=== PATIENT | female | born 2000 | race Caucasian/White ===

== ENCOUNTER 2022-02-06 | Emergency (ER) | payer OTHER, MEDICAID, SELFPAY ==
[2022-02-06 01:03] VITALS: BP 133/74; PULSE 91; RESP 16; TEMP 36.7; O2SAT 98; BMI 46.7
[2022-02-06 04:15] VITALS: BP 121/76; PULSE 79; RESP 12; TEMP 36.9; O2SAT 100
--- NOTE | 2022-02-06 04:15 | ED_ITS ---
HPI - URI/Sore Throat General Chief Complaint: Upper Respiratory Symptoms Stated Complaint: sore throat Time Seen by Provider: 02/06/22 00:21 Source: patient Mode of arrival: ambulatory Limitations: no limitations History of Present Illness HPI Narrative: Patient complaining of sore throat since yesterday no fever no chills no cough patient had oral sex 1 week ago worried about possible infection from there although other partner did not have any infection Related Data Allergies Allergy/AdvReac Type Severity Reaction Status Date / Time No Known Allergies Allergy Unverified 08/06/20 19:42 [No Known Allergies*] Review of Systems Review of Systems: Yes all other systems are reviewed and are negative [facility] Social History Social History Advance Directives: No Advance Directives Information Provided: No Patient : No Physical Exam Vital Signs: Vital Signs: Last Vital Signs Temp 98.4 F 02/06/22 04:15 Pulse 80 02/06/22 05:12 Resp 16 02/06/22 05:12 BP 135/86 02/06/22 05:12 Pulse Ox 99 02/06/22 05:12 BMI result Body Mass Index 46.7 Appearance: Alert. Oriented X3. No acute distress. ENT: Enlarged tonsils no exudate slight erythema Oral Mucosa moist Neck: Normal inspection. Neck supple. CVS: Normal heart rate and rhythm. Pulses normal. Respiratory: No respiratory distress. Equal air entry bilateral, Abdomen: Soft and nontender. Skin: Skin warm and dry. Normal skin color. Normal skin turgor. Neuro: Oriented X 3. MDM - URI/Sore Throat Lab Data Attestation: I reviewed the patient's lab results. Labs: Lab Results 02/06/22 02/06/22 Range/Units 04:23 04:23 COVID-19 ([facility]) Negative (Negative) COVID-19 Clin Com See Note S. pyogenes GrpA NTAA Negative (Negative) Discharge Plan Discharge Clinical Impression: Pharyngitis Patient Disposition: Home, Self-Care Instructions: Pharyngitis (ED) Additional Instructions: Likely have a viral pharyngitis your strep and COVID is negative Follow with PCP if not better Interventions: ED Discharge Assessment Last Done: 02/06/22 05:13 Discharge Date/Time: 02/06/22 05:14
[2022-02-06 04:35] LABS: IDNOW Serial# 08D9AD1C; Strep A Nucleic Acid Negative (Negative)
[2022-02-06 04:41] LABS: COVID-19 Test Negative (Negative)
[2022-02-06 05:12] VITALS: BP 135/86; PULSE 80; RESP 16; O2SAT 99
== END 2022-02-06 05:14 | disposition home or self-care (01) ==
PROVIDERS: Emergency Medicine; Emergency Provider Internal Medicine; PCP Dermatology
DX: J02.9 Acute pharyngitis, unspecified (principal); Z20.822 Contact with and (suspected) exposure to COVID-19
CPT/HCPCS: 87635; 87651; 99283

== ENCOUNTER 2022-07-08 20:56 | Emergency (ER) | payer OTHER, MEDICAID, SELFPAY ==
[2022-07-08 21:00] VITALS: BP 111/74; PULSE 94; TEMP 36.6; O2SAT 100; BMI 46.2
[2022-07-08 21:07] VITALS: BP 135/73; PULSE 78; RESP 18; TEMP 36.6; O2SAT 98; BMI 46.2
[2022-07-08 21:50] LABS: Appearance Urine Clear; Color Urine Yellow; Glucose Urine UA Negative (Negative); Leukocyte Esterase Urine Negative (Negative); Nitrite Urine Negative (Negative); PH 6.5 (5.0-8.0); Specific Gravity - Urine 1.015 (1.005-1.025); Urine Blood Negative (Negative); Urine Ketones Negative (Negative); Urine Protein Negative (Neg-Trace)
[2022-07-08 21:55] LABS: Strep A Nucleic Acid Positive (Negative)
[2022-07-09 00:41] VITALS: BP 143/86; PULSE 70; RESP 16; TEMP 36.9; O2SAT 98
--- NOTE | 2022-07-09 01:10 | PC.NURSE ---
pt a&ox3, vss, pt reports 5/10 throat pain, sores on throat for a few months with no resolution. pt pending ED provider.
--- NOTE | 2022-07-09 01:20 | ED.URI ---
HPI - URI/Sore Throat General Chief Complaint: Dental/Oral Stated Complaint: Sores on Tongue Time Seen by Provider: 07/09/22 01:18 Source: patient Mode of arrival: ambulatory Limitations: no limitations History of Present Illness HPI Narrative: Complaining of sore throat for about a month getting worse also noticed small bumps on the tongue patient was seen here in 02/08 for sore throat at that time strep was negative patient is sexually active but about STDs no vaginal discharge as such denied any discharge on the the partner Related Data Previous Rx's Medication Instructions Recorded amoxicillin 875 mg-potassium 1 tab PO BID #20 tabs 07/09/22 clavulanate 125 mg tablet Allergies Allergy/AdvReac Type Severity Reaction Status Date / Time No Known Allergies Allergy Unverified 08/06/20 19:42 [No Known Allergies*] Review of Systems Review of Systems: Yes all other systems are reviewed and are negative [facility] Social History Social History Advance Directives: No Physical Exam Vital Signs: Vital Signs: Last Vital Signs Temp 98.5 F 07/09/22 00:41 Pulse 70 07/09/22 00:41 Resp 16 07/09/22 00:41 BP 143/86 H 07/09/22 00:41 Pulse Ox 98 07/09/22 00:41 O2 Del Method 07/09/22 00:41 BMI result Body Mass Index 46.2 Appearance: Alert. Oriented X3. No acute distress. ENT: Erythema posterior pharynx no exudates Oral Mucosa moist small bumps on the tongue non necrotic Neck: Normal inspection. Neck supple. CVS: Normal heart rate and rhythm. Pulses normal. Respiratory: No respiratory distress. Skin: Skin warm and dry. Normal skin color. MDM - URI/Sore Throat Lab Data Attestation: I reviewed the patient's lab results. Labs: Lab Results 07/08/22 07/08/22 07/08/22 Range/Units 21:29 21:44 21:44 Urine Color Yellow Urine Appearance Clear Urine pH 6.5 (5.0-8.0) Ur Specific [place] 1.015 (1.005-1.025) Urine Protein Negative (Neg-Trace) mg/dL Urine Glucose (UA) Negative (Negative) mg/dL Urine Ketones Negative (Negative) mg/dL Urine Blood Negative (Negative) Urine Nitrite Negative (Negative) Ur Leukocyte Esterase Negative (Negative) Chlam trachomat DNA PCR NOT DETECTED (Not Detect.) N.gonorrhoeae DNA (PCR) NOT DETECTED (Not Detect.) S. pyogenes GrpA NATA Positive A (Negative) Discharge Plan Discharge Clinical Impression: Acute streptococcal pharyngitis Patient Disposition: Home, Self-Care Instructions: Strep Throat (ED) Additional Instructions: Take antibiotic as prescribed Follow-up with PCP as needed The report for sexual transmitted disease will come by tomorrow will call if it is positive Prescriptions: New amoxicillin-pot clavulanate 875-125 mg tablet 1 tab PO BID Qty: 20 0RF Interventions: ED Discharge Assessment Last Done: 07/09/22 02:01 Discharge Date/Time: 07/09/22 02:03
[2022-07-09] MEDS: Amoxicillin/Potassium Clav 875 MG TABLET PO (01:54)
--- NOTE | 2022-07-09 02:00 | PC.NURSE ---
medicated per provider order.
[2022-07-09 02:58] LABS: CT PCR NOT DETECTED (Not Detect.); NG PCR NOT DETECTED (Not Detect.)
[2022-07-11 22:32] LABS: C. Trachomatis RNA TMA, Throat NOT DETECTED (NOT DETECTED); N. gonorrhoeae RNA TMA, Throat NOT DETECTED (NOT DETECTED)
== END 2022-07-09 02:03 | disposition home or self-care (01) ==
PROVIDERS: Emergency Provider Internal Medicine; PCP Internal Medicine
DX: J02.0 Streptococcal pharyngitis (principal)
CPT/HCPCS: 36415; 81003; 87491; 87591; 87651; 99283

== ENCOUNTER 2022-11-15 08:22 | Emergency (ER) | payer OTHER, MEDICAID, SELFPAY ==
--- NOTE | 2022-11-15 08:23 | ECG_ITS ---
Test Reason : CP Blood Pressure : / mmHG Vent. Rate : 094 BPM Atrial Rate : 094 BPM P-R Int : 134 ms QRS Dur : 068 ms QT Int : 332 ms P-R-T Axes : 036 069 022 degrees QTc Int : 415 ms Normal sinus rhythm Normal ECG When compared with ECG of 03-JUN-2019 15:30, No significant change was found Referred By: Generic ED Physician Electronically Signed By:JAKE COLORADO MD
[2022-11-15 09:12] VITALS: BP 153/88; PULSE 96; RESP 18; TEMP 36.4; O2SAT 97; BMI 45.1
[2022-11-15 09:29] LABS: MANUAL DIFF FLAG NO
[2022-11-15 09:34] LABS: Basophils Percent Auto 0.2 % (0-2); Eosinophils Absolute Auto 0.1 X10*3/uL (0.0-0.4); Eosinophils Percent Auto 0.6 % (0-4); Hematocrit 39.8 % (37.0-47.0); Hemoglobin 13.1 g/dl (12.0-16.0); Imm Gran Abs Auto 0.05 X10*3/uL (0.00-0.03); Imm Gran Pct Auto 0.3 % (0.0-0.4); Lymphocytes Absolute Auto 2.3 X10*3/uL (1.2-4.9); Mean Corpuscular HGB Conc 32.9 g/dl (31.0-35.0); Mean Corpuscular Hemoglobin 27.6 pg (27.0-33.0); Mean Platelet Volume 10.1 fL (9.4-12.3); Monocytes Absolute Auto 0.6 X10*3/uL (0.1-1.2); Monocytes Percent Auto 4.1 % (2-11); Neutrophils Absolute Auto 11.4 x10*3/uL (2.0-8.3); Neutrophils Percent Auto 78.8 % (45-73); Platelet Count 297 X10*3/uL (160-400); Red Blood Count 4.74 X10*6/uL (4.20-5.50); Red Cell Distribution Width 13.1 % (11.0-16.0); White Blood Count 14.4 X10*3/uL (4.8-10.8)
[2022-11-15 09:46] LABS: Anion Gap 9 (12-20); Blood Urea Nitrogen 8 mg/dL (9-16); Calcium 9.2 mg/dL (8.4-10.2); Carbon Dioxide 24 mmol/L (22-29); Chloride 109 mmol/L (96-108); Creatinine Clr Calc Pharmacy 191.4; Estimated Glomerular Filt Rate > 60; Glucose Random 120 mg/dL (60-115); Potassium 4.3 mmol/L (3.3-5.1); Sodium 138 mmol/L (135-145)
[2022-11-15 09:55] LABS: Troponin-I High Sensitivity < 3.5 ng/L (<3.5-17.0)
== END 2022-11-15 11:13 | disposition left against medical advice (07) ==
PROVIDERS: Emergency Provider Emergency Medicine
DX: R07.89 Other chest pain (principal); Z79.899 Other long term (current) drug therapy
CPT/HCPCS: 36415; 80048; 84484; 85025; 93005; 99283

== ENCOUNTER 2022-12-18 14:24 | Emergency (ER) | payer OTHER, SELFPAY ==
--- NOTE | 2022-12-18 14:51 | ED_ITS ---
HPI - Female Genitourinary General Chief complaint: Urogenital-Female <Michelle Cabezas CNP - Last Filed: 12/18/22 14:55> Stated complaint: STD test <Michelle Cabezas CNP - Last Filed: 12/18/22 14:55> Time Seen by Provider: 12/18/22 15:14 <Michelle Cabezas CNP - Last Filed: 12/18/22 14:55> Source: patient <Verónica Marino NP - Last Filed: 12/18/22 17:41> Mode of arrival: ambulatory <Verónica Marino NP - Last Filed: 12/18/22 17:41> Limitations: no limitations <Verónica Marino NP - Last Filed: 12/18/22 17:41> History of Present Illness HPI Narrative: 22-year-old female previously healthy here with concern for STD. Patient reports he had unprotected sexual intercourse with a new sexual partner last night in the night before. Since having intercourse she reports some light vaginal bleeding and discomfort. She denies any urinary symptoms, vaginal discharge, abdominal pain, back pain, fevers or vomiting. Patient reports that she has light vaginal bleeding but has not required to use a pad. She is unsure of her last menstrual cycle. She is on oral control <Verónica Marino NP - Last Filed: 12/18/22 17:41> Related Data Home medications: Previous Rx's Medication Instructions Recorded amoxicillin 875 mg-potassium 1 tab PO BID #20 tabs 07/09/22 clavulanate 125 mg tablet doxycycline monohydrate 100 mg 100 mg PO BID #14 tabs 12/18/22 tablet <Michelle Cabezas CNP - Last Filed: 12/18/22 14:55> Allergies/Adverse reactions: Allergies Allergy/AdvReac Type Severity Reaction Status Date / Time No Known Allergies Allergy Unverified 08/06/20 19:42 [No Known Allergies*] <Michelle Cabezas CNP - Last Filed: 12/18/22 14:55> Review of Systems Review of Systems: Yes all other systems are reviewed and are negative <DORIS Guillory Last Filed: 12/18/22 17:41> Constitutional: Constitutional: Reports no additional constitutional complaints, Denies body ache(s), Denies chills, Denies fever(s), Denies headache(s) and Denies weakness <Verónica Marino WRAPPING MACHINE HELPER - Last Filed: 12/18/22 17:41> Eyes: Eyes: Reports no additional eye complaints and Denies change in vision <Verónica Marino WRAPPING MACHINE HELPER - Last Filed: 12/18/22 17:41> ENT: Reports system reviewed and no additional complaints, except as documented, Denies dizziness, Denies headache(s), Denies nasal congestion, Denies nasal discharge and Denies neck pain <Verónica Marino WRAPPING MACHINE HELPER - Last Filed: 12/18/22 17:41> Cardiovascular: Cardiovascular: Reports no additional cardiovascular complaints, Denies chest pain, Denies leg edema and Denies dyspnea <Verónica Marino WRAPPING MACHINE HELPER - Last Filed: 12/18/22 17:41> Respiratory: Respiratory: Reports no additional respiratory complaints, Denies cough and Denies dyspnea <Verónica Marino WRAPPING MACHINE HELPER - Last Filed: 12/18/22 17:41> Gastrointestinal: Gastrointestinal: Reports no additional gastrointestinal complaints, Denies abdominal pain, Denies diarrhea, Denies nausea and Denies vomiting <Verónica Marino WRAPPING MACHINE HELPER - Last Filed: 12/18/22 17:41> Genitourinary: Genitourinary: Reports no additional female genitourinary complaints, Reports abnormal vaginal bleeding, Denies hematuria, Denies difficulty voiding, Denies dysuria, Denies pelvic pain, Denies urinary incontinence, Denies urinary hesitancy, Denies urinary urgency, Denies vaginal discharge, Denies vaginal dryness, Denies vaginal odor and Denies vaginal pruritus <Verónica Marino WRAPPING MACHINE HELPER - Last Filed: 12/18/22 17:41> Musculoskeletal: Musculoskeletal: Reports no additional musculoskeletal complaints, Denies back pain, Denies arthralgias, Denies joint swelling, Denies neck pain, Denies numbness and Denies tingling <Verónica Marino WRAPPING MACHINE HELPER - Last Filed: 12/18/22 17:41> Integumentary/Breasts: Skin/Breast: Reports system reviewed and no additional complaints, except as docu and Denies rash <Verónica Marino NP - Last Filed: 12/18/22 17:41> Neurologic: Reports system reviewed and no additional complaints, except as documented, Denies Abnormal speech present, Denies dizziness, Denies headache(s), Denies numbness, Denies tingling and Denies weakness <Verónica Marino NP - Last Filed: 12/18/22 17:41> [facility] Past Medical History Attestation statement: The following information was validated with the patient. <Verónica Marino NP - Last Filed: 12/18/22 17:41> Source: old records reviewed and nursing notes reviewed <Verónica Marino NP - Last Filed: 12/18/22 17:41> Social History Social History: Social History Advance Directives: No Advance Directives Information Provided: Yes <Michelle Cabezas CNP - Last Filed: 12/18/22 14:55> Physical Exam Vital Signs: Vital Signs: Last Vital Signs Temp 98.1 F 12/18/22 14:52 Pulse 80 12/18/22 14:52 Resp 18 12/18/22 14:52 BP 135/71 12/18/22 14:52 Pulse Ox 97 12/18/22 14:52 O2 Del Method 12/18/22 14:52 BMI result Body Mass Index 45.1 <Michelle Cabezas CNP - Last Filed: 12/18/22 14:55> Vital Signs: Last Vital Signs Temp 98.1 F 12/18/22 14:52 Pulse 80 12/18/22 14:52 Resp 18 12/18/22 14:52 BP 135/71 12/18/22 14:52 Pulse Ox 97 12/18/22 14:52 O2 Del Method 12/18/22 14:52 BMI result Body Mass Index 45.1 <Verónica Marino NP - Last Filed: 12/18/22 17:41> Const: General: cooperative, healthy appearing, comfortable and no acute distress <Verónica Marino NP - Last Filed: 12/18/22 17:41> Orientation/consciousness: patient oriented x3 <Vernóica Marino WRAPPING MACHINE HELPER - Last Filed: 12/18/22 17:41> Limitations: no limitations <Verónica Marino WRAPPING MACHINE HELPER - Last Filed: 12/18/22 17:41> HEENT: Head: Yes normal to inspection <Verónica Marino WRAPPING MACHINE HELPER - Last Filed: 12/18/22 17:41> Ears: hearing grossly normal bilaterally <Verónica Marino WRAPPING MACHINE HELPER - Last Filed: 12/18/22 17:41> General nose exam: Normal external nose present <Verónica Marino WRAPPING MACHINE HELPER - Last Filed: 12/18/22 17:41> Face and sinus: Yes normal facial exam <Verónica Marino WRAPPING MACHINE HELPER - Last Filed: 12/18/22 17:41> Mouth: Normal oral and palatal mucosa present <Verónica Marino WRAPPING MACHINE HELPER - Last Filed: 12/18/22 17:41> Throat: Yes posterior oropharynx normal <Verónica Marino WRAPPING MACHINE HELPER - Last Filed: 12/18/22 17:41> Eyes: General: appearance normal, both eyes and all related structures <Verónica Marino WRAPPING MACHINE HELPER - Last Filed: 12/18/22 17:41> Pupils: Equal, round and reactive pupils present <Verónica Marino WRAPPING MACHINE HELPER - Last Filed: 12/18/22 17:41> Neck: Neck: Yes normal visual inspection <Verónica Marino WRAPPING MACHINE HELPER - Last Filed: 12/18/22 17:41> Chest: Chest palpation & inspection: normal inspection of the chest <Verónica Marino WRAPPING MACHINE HELPER - Last Filed: 12/18/22 17:41> Resp: Effort & Inspection: normal respiratory effort <Verónica Marino WRAPPING MACHINE HELPER - Last Filed: 12/18/22 17:41> Auscultation: clear to auscultation bilaterally <Verónica Marino WRAPPING MACHINE HELPER - Last Filed: 12/18/22 17:41> Cardio: Rate: regular rate <Verónica Marino WRAPPING MACHINE HELPER - Last Filed: 12/18/22 17 :41> Rhythm: regular rhythm <Verónica Marino WRAPPING MACHINE HELPER - Last Filed: 12/18/22 17:41> Peripheral pulses: Peripheral pulses 2+ throughout <Verónica Marino WRAPPING MACHINE HELPER - Last Filed: 12/18/22 17:41> GI: Inspection: Yes normal to inspection <Verónica Marino WRAPPING MACHINE HELPER - Last Filed: 12/18/22 17:41> Palpation (GI): Soft to palpation and nontender <Verónica Marino WRAPPING MACHINE HELPER - Last Filed: 12/18/22 17:41> Auscultation: normal bowel sounds <Verónica Marino, WRAPPING MACHINE HELPER - Last Filed: 12/18/22 17:41> : Other: Deferred pelvic exam <Veróniac Marino WRAPPING MACHINE HELPER - Last Filed: 12/18/22 17:41> Back/Spine/Pelvis: Thoracic/Lumbar Spine: thoracic and lumbar spine normal to inspection <Verónica Marino WRAPPING MACHINE HELPER - Last Filed: 12/18/22 17:41> Skin: General skin exam: no rashes or lesions noted <Verónica Marino WRAPPING MACHINE HELPER - Last Filed: 12/18/22 17:41> Neuro: General: patient oriented x3, no focal motor deficits and normal sensation to monofilament <Verónica Marino WRAPPING MACHINE HELPER - Last Filed: 12/18/22 17:41> Cranial nerves: Yes Equal, round and reactive pupils present <Verónica Marino WRAPPING MACHINE HELPER - Last Filed: 12/18/22 17:41> Cognition (Neuro): normal cognition <Verónica Marino WRAPPING MACHINE HELPER - Last Filed: 12/18/22 17:41> Speech: No Abnormal speech present <Verónica Marino WRAPPING MACHINE HELPER - Last Filed: 12/18/22 17:41> Gait exam (Neuro): Normal gait present <Verónica Marino WRAPPING MACHINE HELPER - Last Filed: 12/18/22 17:41> Motor exam (neuro): 5/5 motor strength present throughout <Verónica Marino WRAPPING MACHINE HELPER - Last Filed: 12/18/22 17:41> Extrem: General: Yes normal to inspection, Yes no pedal edema and Yes no calf tenderness <Verónica Marino WRAPPING MACHINE HELPER - Last Filed: 12/18/22 17:41> Course Course Course Narrative: This is an RME: Additional HPI, ROS, PE not included below will be deferred to primary provider. Patient is a 22-year-old female presenting to the emergency department with reports unprotected intercourse yesterday night, requesting STI testing at this time. Reports vaginal discomfort at this time, scant blood, denies possibility of , LMP 1.5 weeks ago, on oral contraception. Requesting prophylactic treatment. Plan: urinalysis, ur preg, CT/NG <Michelle Cabezas CNP - Last Filed: 12/18/22 14:55> Medications Administered Discontinued Medications Generic Name Dose Route Start Last Admin Trade Name Freq PRN Reason Stop Dose Admin Ceftriaxone Sodium 500 mg/ 0 mg 12/18/22 14:55 12/18/22 15:21 Lidocaine HCl 1 ml IM 12/18/22 14:56 1 kit ONCE ONE Administration <Michelle Cabezas CNP - Last Filed: 12/18/22 14:55> Medications Administered Discontinued Medications Generic Name Dose Route Start Last Admin Trade Name Freq PRN Reason Stop Dose Admin Ceftriaxone Sodium 500 mg/ 0 mg 12/18/22 14:55 12/18/22 15:21 Lidocaine HCl 1 ml IM 12/18/22 14:56 1 kit ONCE ONE Administration <Verónica Marino NP - Last Filed: 12/18/22 17:41> Medical Decision Making Medical Decision Making [facility] Narrative: 22-year-old female here seeking STD testing after having recent unprotected sex with complaints of mild vaginal bleeding and discomfort. Deferred pelvic exam Will send UA, urine preg, CTNG -did explain to patient that as the recent unprotected sex was last night and the night before she may test false negative and should retest in 1 week if she is still concern for STDs. She was provided with information on [facility] <Verónica Marino NP - Last Filed: 12/18/22 17:41> Differential Diagnosis Differential Diagnoses: The differential diagnosis associated with the presentation includes <Verónica Marino NP - Last Filed: 12/18/22 17:41> STD, dysfunctional uterine bleeding <Verónica Marino NP - Last Filed: 12/18/22 17:41> Lab Data [facility] Lab Attestation statement: I reviewed the patient's lab results. <Verónica Marino NP - Last Filed: 12/18/22 17:41> Labs: Lab Results 12/18/22 12/18/22 Range/Units 15:08 15:08 Urine Color Dark Yellow Urine Appearance Clear Urine pH 6.0 (5.0-9.0) Ur Specific [place] >= 1.030 H (1.005-1.025) Urine Protein Trace (Neg-Trace) mg/dL Urine Glucose (UA) Negative (Negative) mg/dL Urine Ketones Negative (Negative) mg/dL Urine Blood Large (3+) H (Negative) Urine Nitrite Negative (Negative) Ur Leukocyte Esterase Small (1+) H (Negative) Urine RBC 11-20 H (0-2) /HPF Urine WBC 6-10 H (0-5) /HPF Ur Squamous Epith Cells 3-5 (0-2) /HPF Urine Bacteria None Seen (None Seen) Hyaline Casts 0-2 (0-2) /LPF Urine Test NEGATIVE (NEGATIVE) <Michelle Cabezas CNP - Last Filed: 12/18/22 14:55> Lab Results 12/18/22 12/18/22 Range/Units 15:08 15:08 Urine Color Dark Yellow Urine Appearance Clear Urine pH 6.0 (5.0-9.0) Ur Specific [place] >= 1.030 H (1.005-1.025) Urine Protein Trace (Neg-Trace) mg/dL Urine Glucose (UA) Negative (Negative) mg/dL Urine Ketones Negative (Negative) mg/dL Urine Blood Large (3+) H (Negative) Urine Nitrite Negative (Negative) Ur Leukocyte Esterase Small (1+) H (Negative) Urine RBC 11-20 H (0-2) /HPF Urine WBC 6-10 H (0-5) /HPF Ur Squamous Epith Cells 3-5 (0-2) /HPF Urine Bacteria None Seen (None Seen) Hyaline Casts 0-2 (0-2) /LPF Urine Test NEGATIVE (NEGATIVE) <Verónica Marino NP - Last Filed: 12/18/22 17:41> Prescription Management I considered prescription management with: Antibiotic <Verónica Marino NP - Last Filed: 12/18/22 17:41> Patient was given ceftriaxone 500 mg IM prophylactically and she will be discharged home with doxycycline prophylactically <Verónica Marino NP - Last Filed: 12/18/22 17:41> Discharge Plan Discharge Clinical Impression: Concern about STD in female without diagnosis <Michelle Cabezas CNP - Last Filed: 12/18/22 14:55> Patient Disposition: Home, Self-Care <Michelle Cabezas CNP - Last Filed: 12/18/22 14:55> Instructions: Sexually Transmitted Diseases (ED), Safe Sex Practices (ED) <Michelle Cabezas CNP - Last Filed: 12/18/22 14:55> Additional Instructions: Tested you for STDs. We will call you if your results are positive. You were treated prophylactically with an injection of an antibiotic and are going home with antibiotic pills. Since you just had unprotected intercourse a day or 2 ago it is recommended that you retest in 1-2 weeks if you are negative today. [facility] at [facility]. <Michelle Cabezas CNP - Last Filed: 12/18/22 14:55> Prescriptions: New doxycycline monohydrate 100 mg tablet 100 mg PO BID Qty: 14 0RF No Action amoxicillin-pot clavulanate 875-125 mg tablet 1 tab PO BID Qty: 20 0RF <Michelle Cabezas CNP - Last Filed: 12/18/22 14:55> Referrals: Physician,Unknown J [Primary Care Provider] - <Michelle Cabezas CNP - Last Filed: 12/18/22 14:55> Interventions: ED Discharge Assessment Last Done: 12/18/22 15:41 <Michelle Cabezas CNP - Last Filed: 12/18/22 14:55> Discharge Date/Time: 12/18/22 15:41 <Michelle Cabezas CNP - Last Filed: 12/18/22 14:55>
[2022-12-18 14:52] VITALS: BP 135/71; PULSE 80; RESP 18; TEMP 36.7; O2SAT 97; BMI 45.1
[2022-12-18] MEDS: cefTRIAXone sodium 500 MG, Lidocaine HCl 1 % MPF 1 ML IM (15:21)
[2022-12-18 15:25] LABS: Appearance Urine Clear; Color Urine Dark Yellow; Glucose Urine UA Negative (Negative); Leukocyte Esterase Urine Small (1+) (Negative); Nitrite Urine Negative (Negative); Specific Gravity - Urine >= 1.030 (1.005-1.025); UMIC TRIGGER UACC YES; Urine Blood Large (3+) (Negative); Urine Ketones Negative (Negative); Urine Protein Trace mg/dL (Neg-Trace)
[2022-12-18 15:29] LABS: UPreg QC Valid YES; Urine Pregnancy NEGATIVE (NEGATIVE)
[2022-12-18 15:30] LABS: Bacteria Urine None Seen (None Seen); Hyaline Casts Urine 0-2 /LPF (0-2); UACC Culture Trigger YES
[2022-12-19 05:32] LABS: CT PCR NOT DETECTED (Not Detect.); NG PCR NOT DETECTED (Not Detect.)
== END 2022-12-18 15:41 | disposition home or self-care (01) ==
PROVIDERS: Nurse Practitioner Family; Emergency Provider Student in an Organized Health Care Education/Training Program
DX: N93.9 Abnormal uterine and vaginal bleeding, unspecified (principal); R10.2 Pelvic and perineal pain; Z20.2 Contact with and (suspected) exposure to infections with a predominantly sexual mode of transmission; Z79.899 Other long term (current) drug therapy
CPT/HCPCS: 0353U; 81001; 81025; 87086; 87147; 96372; 99282; 99284; J0696

== ENCOUNTER 2023-01-31 02:18 | Emergency (ER) | payer OTHER, SELFPAY ==
[2023-01-31 02:25] VITALS: BP 105/66; BP 128/68; PULSE 106; RESP 18; TEMP 36.5; O2SAT 97; BMI 45.4
--- NOTE | 2023-01-31 02:41 | ECG_ITS ---
Test Reason : UNRESPONSIVE Blood Pressure : / mmHG Vent. Rate : 116 BPM Atrial Rate : 116 BPM P-R Int : 158 ms QRS Dur : 078 ms QT Int : 308 ms P-R-T Axes : 046 082 009 degrees QTc Int : 428 ms Sinus tachycardia Possible Left atrial enlargement Nonspecific T wave abnormality Abnormal ECG When compared with ECG of 15-NOV-2022 08:35, No significant change was found Referred By: Justa Rowell Electronically Signed By:Cy Silver
--- NOTE | 2023-01-31 02:42 | ED.GENADULT ---
HPI - General Adult General Chief complaint: ETOH/Substance Use Stated complaint: AMS with Drug abuse Time Seen by Provider: 01/31/23 02:33 Source: patient, family and EMS Mode of arrival: EMS Limitations: altered mental status History of Present Illness HPI narrative: Patient comes in the emergency room after being found drunk/unresponsive by her mother. EMS reports that the patient's mother reported that the patient was sitting on the chair, leaning over the kitchen table. The patient's mother tried waking her up but patient did not respond therefore 911 was called. EMS reports that the patient was reactive to painful stimuli, by the time that they arrived to emergency room, patient was alert and oriented, talking to EMS. Patient states that she drank a lot of alcohol earlier today. Denies drug use. Denies chest pain or shortness of breath. Related Data Previous Rx's Medication Instructions Recorded amoxicillin 875 mg-potassium 1 tab PO BID #20 tabs 07/09/22 clavulanate 125 mg tablet doxycycline monohydrate 100 mg 100 mg PO BID #14 tabs 12/18/22 tablet Allergies Allergy/AdvReac Type Severity Reaction Status Date / Time No Known Allergies Allergy Unverified 08/06/20 19:42 [No Known Allergies*] Review of Systems Review of Systems: Constitutional : No Weight loss, No Fever, No Chills, No Night Sweats, No Fatigue, No Malaise ENT/Mouth : No Hearing loss, No Ear Pain, No Nasal Congestion, No Sinus Pain, No Hoarseness, No sore throat, No Rhinorrhea, No Swallowing Difficulty Eyes: No Eye Pain, No Swelling, No Redness, No Foreign Body, No Discharge, No Vision Changes Cardiovascular : No Chest Pain, No SOB, No Dyspnea on Exertion, No Orthopnea, No Edema, No Palpitations Respiratory : No Cough, No Sputum, No Wheezing, No Smoke Exposure, No Dyspnea Gastrointestinal : No Nausea, No Vomiting, No Diarrhea, No Constipation, No abdominal Pain, No Hematochezia, No Melena Genitourinary : no irregular bleeding, No Dysuria, No Urinary Frequency, No Hematuria, No Urinary Incontinence, No Urgency, No Flank Pain, No Urinary Flow Changes, No Hesitancy Musculoskeletal : No joint pain, No Myalgias, No Joint Swelling Skin : No Skin Lesions, No rash Neuro : No Weakness, No Numbness, No Paresthesias, No Loss of Consciousness, No Dizziness, No Headache Psych : No Anxiety/Panic, No Depression, No SI/HI/AH/VH, admits to drinking a lot of alcohol today Heme/Lymph: No Bruising, No Bleeding,No Lymphadenopathy Endocrine : No Polyuria, No Polydipsia, No Temperature Intolerance [facility] Past Medical History Medical History (Updated 01/31/23 @ 03:56 by Justa Rowell MD) Mood disorder Social History Social History Alcohol intake: current Alcohol intake frequency: a few times a week Alcohol type: hard liquor Smoked in Last 30 Days: No Use of substances other than those prescribed or required for medical reasons: Yes Substance Use Type: Marijuana Last Used Substance: Just Prior to Admission Advance Directives: No Patient : No Physical Exam ED Vital Signs: Vital Signs - 24 hr 01/31/23 02:25 Temperature 97.7 F Pulse Rate 106 H Respiratory Rate 18 Blood Pressure 105/66 Pulse Oximetry 97 Oxygen Delivery Method Room Air BMI result Body Mass Index 45.4 Const Other: Appearance: Alert. Oriented X3. No acute distress. Eyes: Pupils equal, round and reactive to light. ENT: Pharynx normal. Neck: Normal inspection. Neck supple. No lymph nodes noted. No crepitus CVS: Normal heart rate and rhythm. Pulses normal. Normal S1 and S2 Respiratory: No respiratory distress. Breath sounds normal. No Wheezing. No rales Abdomen: Soft and nontender. No rigidity. No distention. Skin: Skin warm and dry. Normal skin color. Normal skin turgor. Extremities: No lower extremity edema. No Lacerations. No Rash Neuro: Oriented X 3. No motor deficit. No sensory deficit. Moving all extremities. No slurred speech. CN 2 through 12 grossly intact Psych: calm, cooperative, flatl affect Course Course Course Narrative: -of patient's labs are pending -patient denies hitting her head, states that this was all alcohol. - Medical Decision Making Medical Decision Making MDM Narrative: -patient feeling much better, alert and orient x3, clinically sober, patient ready for discharge Lab Data 01/31/23 03:10 01/31/23 03:10 Labs: Lab Results 01/31/23 01/31/23 01/31/23 Range/Units 03:10 03:10 03:10 WBC 12.4 H (4.8-10.8) X10*3/uL RBC 4.42 (4.20-5.50) X10*6/uL Hgb 12.3 (12.0-16.0) g/dl Hct 37.5 (37.0-47.0) % MCV 84.8 (80.0-98.0) fL MCH 27.8 (27.0-33.0) pg MCHC 32.8 (31.0-35.0) g/dl RDW 13.5 (11.0-16.0) % Plt Count 289 (160-400) X10*3/uL MPV 10.4 (9.4-12.3) fL Immature Gran % (Auto) 0.3 (0.0-0.4) % Neut % (Auto) 79.1 H (45-73) % Lymph % (Auto) 14.1 L (20-40) % [place] % (Auto) 5.7 (2-11) % Eos % (Auto) 0.5 (0-4) % Baso % (Auto) 0.3 (0-2) % Lymph # (Auto) 1.8 (1.2-4.9) X10*3/uL [place] # (Auto) 0.7 (0.1-1.2) X10*3/uL Eos # (Auto) 0.1 (0.0-0.4) X10*3/uL Baso # (Auto) 0.0 (0.0-0.2) X10*3/uL Abs Immat Gran (auto) 0.04 H (0.00-0.03) X10*3/uL Absolute Neuts (auto) 9.8 H (2.0-8.3) x10*3/uL Absolute Nucleated RBC 0.000 (0.0-0.012) X10*3/uL Nucleated RBC % (auto) 0.0 (0.0-0.2) /100WBC PT 13.1 (10.0-13.1) SEC INR 1.1 (0.9-1.1) Troponin I High Sens < 3.5 (<3.5-17.0) ng/L Urine Color Urine Appearance Urine pH (5.0-9.0) Ur Specific [place] (1.005-1.025) Urine Protein (Neg-Trace) mg/dL Urine Glucose (UA) (Negative) mg/dL Urine Ketones (Negative) mg/dL Urine Blood (Negative) Urine Nitrite (Negative) Ur Leukocyte Esterase (Negative) Urine RBC (0-2) /HPF Urine WBC (0-5) /HPF Ur Squamous Epith Cells (0-2) /HPF Urine Bacteria (None Seen) Hyaline Casts (0-2) /LPF Urine Opiates Screen (Not Detect) Urine Fentanyl Screen (Not Detect) Ur Barbiturates Screen (Not Detect) Ur Phencyclidine Scrn (Not Detect) Ur Amphetamines Screen (Not Detect) U Benzodiazepines Scrn (Not Detect) Urine Cocaine Screen (Not Detect) U Marijuana (THC) Screen (Not Detect) Ethyl Alcohol mg/dL 01/31/23 01/31/23 01/31/23 Range/Units 03:10 03:10 03:10 WBC (4.8-10.8) X10*3/uL RBC (4.20-5.50) X10*6/uL Hgb (12.0-16.0) g/dl Hct (37.0-47.0) % MCV (80.0-98.0) fL MCH (27.0-33.0) pg MCHC (31.0-35.0) g/dl RDW (11.0-16.0) % Plt Count (160-400) X10*3/uL MPV (9.4-12.3) fL Immature Gran % (Auto) (0.0-0.4) % Neut % (Auto) (45-73) % Lymph % (Auto) (20-40) % [place] % (Auto) (2-11) % Eos % (Auto) (0-4) % Baso % (Auto) (0-2) % Lymph # (Auto) (1.2-4.9) X10*3/uL [place] # (Auto) (0.1-1.2) X10*3/uL Eos # (Auto) (0.0-0.4) X10*3/uL Baso # (Auto) (0.0-0.2) X10*3/uL Abs Immat Gran (auto) (0.00-0.03) X10*3/uL Absolute Neuts (auto) (2.0-8.3) x10*3/uL Absolute Nucleated RBC (0.0-0.012) X10*3/uL Nucleated RBC % (auto) (0.0-0.2) /100WBC PT (10.0-13.1) SEC INR (0.9-1.1) Troponin I High Sens (<3.5-17.0) ng/L Urine Color Yellow Urine Appearance Clear Urine pH 5.5 (5.0-9.0) Ur Specific [place] 1.020 (1.005-1.025) Urine Protein Negative (Neg-Trace) mg/dL Urine Glucose (UA) Negative (Negative) mg/dL Urine Ketones Trace (Negative) mg/dL Urine Blood Negative (Negative) Urine Nitrite Negative (Negative) Ur Leukocyte Esterase Small (1+) H (Negative) Urine RBC 3-5 H (0-2) /HPF Urine WBC 6-10 H (0-5) /HPF Ur Squamous Epith Cells 6-10 (0-2) /HPF Urine Bacteria Trace (None Seen) Hyaline Casts 0-2 (0-2) /LPF Urine Opiates Screen Not Detected (Not Detect) Urine Fentanyl Screen Not Detected (Not Detect) Ur Barbiturates Screen Not Detected (Not Detect) Ur Phencyclidine Scrn Not Detected (Not Detect) Ur Amphetamines Screen Not Detected (Not Detect) U Benzodiazepines Scrn Not Detected (Not Detect) Urine Cocaine Screen Not Detected (Not Detect) U Marijuana (THC) Screen POSITIVE H (Not Detect) Ethyl Alcohol 89 mg/dL Discharge Plan Discharge Clinical Impression: Alcoholic intoxication Patient Disposition: Home, Self-Care Instructions: Abuse of Alcohol (ED) Additional Instructions: Please follow-up with your primary care physician tomorrow. If you have any worsening or new symptoms, please return to the emergency room or call 911 Prescriptions: No Action doxycycline monohydrate 100 mg tablet 100 mg PO BID Qty: 14 0RF amoxicillin-pot clavulanate 875-125 mg tablet 1 tab PO BID Qty: 20 0RF Interventions: Isabela-Suicide Risk Severity Scale Last Done: 01/31/23 02:36
[2023-01-31 03:19] LABS: MANUAL DIFF FLAG NO
--- NOTE | 2023-01-31 03:19 | PC.NURSE ---
Addendum entered by Columba Schwab 01/31/23 03:23: Mother at bedside. Original Note: Pt A&Ox3, denies any pain, states I just got really drunk, I just took a couple of shoots . Denies any drug use, reports smoking marijuana. Denies SI/HI, denies auditory/visual hallucinations. Pt ambulated to the BR with unsteady gait, staff standby for assist. EKG done and reviewed by provider, urine sample/lab work drawn and sent to lab.
[2023-01-31 03:20] LABS: Basophils Percent Auto 0.3 % (0-2); Eosinophils Absolute Auto 0.1 X10*3/uL (0.0-0.4); Eosinophils Percent Auto 0.5 % (0-4); Hematocrit 37.5 % (37.0-47.0); Hemoglobin 12.3 g/dl (12.0-16.0); Imm Gran Abs Auto 0.04 X10*3/uL (0.00-0.03); Imm Gran Pct Auto 0.3 % (0.0-0.4); Lymphocytes Absolute Auto 1.8 X10*3/uL (1.2-4.9); Lymphocytes Percent Auto 14.1 % (20-40); Mean Corpuscular HGB Conc 32.8 g/dl (31.0-35.0); Mean Corpuscular Hemoglobin 27.8 pg (27.0-33.0); Mean Corpuscular Volume 84.8 fL (80.0-98.0); Mean Platelet Volume 10.4 fL (9.4-12.3); Monocytes Absolute Auto 0.7 X10*3/uL (0.1-1.2); Monocytes Percent Auto 5.7 % (2-11); Neutrophils Absolute Auto 9.8 x10*3/uL (2.0-8.3); Neutrophils Percent Auto 79.1 % (45-73); Platelet Count 289 X10*3/uL (160-400); Red Blood Count 4.42 X10*6/uL (4.20-5.50); Red Cell Distribution Width 13.5 % (11.0-16.0); White Blood Count 12.4 X10*3/uL (4.8-10.8)
[2023-01-31 03:23] LABS: Appearance Urine Clear; Color Urine Yellow; Glucose Urine UA Negative (Negative); Leukocyte Esterase Urine Small (1+) (Negative); Nitrite Urine Negative (Negative); PH 5.5 (5.0-9.0); UMIC TRIGGER UACC YES; Urine Blood Negative (Negative); Urine Ketones Trace mg/dL (Negative); Urine Protein Negative (Neg-Trace)
[2023-01-31 03:27] LABS: INTERNATIONAL NORM RATIO 1.1 (0.9-1.1); Prothrombin Time 13.1 SEC (10.0-13.1)
[2023-01-31 03:31] LABS: Bacteria Urine Trace (None Seen); Hyaline Casts Urine 0-2 /LPF (0-2); UACC Culture Trigger YES
[2023-01-31 03:45] LABS: Ethanol 89 mg/dL
[2023-01-31 03:50] LABS: Amphetamine Screen Urine Not Detected (Not Detect); Barbiturates, Urine Not Detected (Not Detect); Benzodiazepines Screen Urine Not Detected (Not Detect); Cannabinoid Screen Urine POSITIVE (Not Detect); Cocaine Screen Urine Not Detected (Not Detect); Fentanyl, urine Not Detected (Not Detect); Opiate Screen Urine Not Detected (Not Detect); Phencyclidine Screen Urine Not Detected (Not Detect)
[2023-01-31 03:51] LABS: Troponin-I High Sensitivity < 3.5 ng/L (<3.5-17.0)
[2023-01-31 04:00] LABS: Alanine Aminotransferase 24 U/L (0-31); Albumin Level 4.4 g/dL (3.5-5.0); Alkaline Phosphatase 85 U/L (39-117); Anion Gap 17 (12-20); Aspartate Amino Transferase 21 U/L (5-31); Bilirubin Direct < 0.2 mg/dL (0.0-0.5); Bilirubin Total 0.4 mg/dL (0.0-1.0); Blood Urea Nitrogen 9 mg/dL (9-16); Calcium 9.2 mg/dL (8.4-10.2); Carbon Dioxide 22 mmol/L (22-29); Chloride 109 mmol/L (96-108); Creatinine Clr Calc Pharmacy 140.9; Estimated Glomerular Filt Rate > 60; Glucose Random 103 mg/dL (60-115); HCG Quantitative < 2 mIU/mL; Magnesium 1.8 mg/dL (1.6-2.6); Potassium 3.6 mmol/L (3.3-5.1); Sodium 144 mmol/L (135-145); Total Protein 7.4 g/dL (6.5-8.0)
== END 2023-01-31 04:09 | disposition home or self-care (01) ==
PROVIDERS: Emergency Provider Emergency Medicine; PCP Internal Medicine
DX: F10.220 Alcohol dependence with intoxication, uncomplicated (principal); Y90.4 Blood alcohol level of 80-99 mg/100 ml; F12.90 Cannabis use, unspecified, uncomplicated
CPT/HCPCS: 36415; 80048; 80076; 80307; 81001; 82077; 83735; 84484; 84702; 85025; 85610; 87086; 93005; 99283; 99284

== ENCOUNTER 2023-02-06 15:16 | Emergency (ER) | payer OTHER, SELFPAY ==
[2023-02-06 15:23] VITALS: BP 120/82; PULSE 104; RESP 18; TEMP 36.6; O2SAT 98; BMI 45.6
--- NOTE | 2023-02-06 15:23 | ED.GENADULT ---
HPI - General Adult General Chief complaint: General Medical Stated complaint: abd pain/ headache Related Data Previous Rx's ?Medication ?Instructions ?Recorded amoxicillin 875 mg-potassium 1 tab PO BID #20 tabs 07/09/22 clavulanate 125 mg tablet doxycycline monohydrate 100 mg 100 mg PO BID #14 tabs 12/18/22 tablet Allergies Allergy/AdvReac Type Severity Reaction Status Date / Time No Known Allergies Allergy Unverified 08/06/20 19:42 [No Known Allergies*] [facility] Past Medical History Medical History (Updated 05/23/24 @ 13:58 by NILES Mccurdy) Mood disorder Social History Social History Alcohol intake: current Alcohol intake frequency: a few times a week Alcohol type: hard liquor Substance Use Type: Marijuana Physical Exam ED Vital Signs: BMI result Body Mass Index 45.6 Course Course Course Narrative: This is an RME: Additional HPI, ROS, PE not included below will be deferred to primary provider. 22 year old female hx of bipolar disorder presents w/ epigastric pain X3 days w/ a/c nausea and bad headache ( diffuse in nature, no vision changes or head trauma, feels like typical). LMP 1 month ago. Not on control. Denies fevers, chills, cp,sob, vision changes, dizziness. Denies sick contacts PE benign. Neuro nonfocal. Plan- Medical Decision Making Lab Data 02/06/23 16:24 02/06/23 16:24 Labs: Lab Results 02/06/23 Range/Units 16:24 WBC 8.2 (4.8-10.8) X10*3/uL RBC 4.85 (4.20-5.50) X10*6/uL Hgb 13.5 (12.0-16.0) g/dl Hct 42.0 (37.0-47.0) % MCV 86.6 (80.0-98.0) fL MCH 27.8 (27.0-33.0) pg MCHC 32.1 (31.0-35.0) g/dl RDW 13.4 (11.0-16.0) % Plt Count TNP MPV 11.5 (9.4-12.3) fL Immature Gran % (Auto) 0.2 (0.0-0.4) % Neut % (Auto) 77.4 H (45-73) % Lymph % (Auto) 14.7 L (20-40) % [place] % (Auto) 6.0 (2-11) % Eos % (Auto) 1.5 (0-4) % Baso % (Auto) 0.2 (0-2) % Lymph # (Auto) 1.2 (1.2-4.9) X10*3/uL [place] # (Auto) 0.5 (0.1-1.2) X10*3/uL Eos # (Auto) 0.1 (0.0-0.4) X10*3/uL Baso # (Auto) 0.0 (0.0-0.2) X10*3/uL Abs Immat Gran (auto) 0.02 (0.00-0.03) X10*3/uL Absolute Neuts (auto) 6.3 (2.0-8.3) x10*3/uL Absolute Nucleated RBC 0.000 (0.0-0.012) X10*3/uL Nucleated RBC % (auto) 0.0 (0.0-0.2) /100WBC Sodium 139 (135-145) mmol/L Potassium 4.4 D (3.3-5.1) mmol/L Chloride 107 (96-108) mmol/L Carbon Dioxide 21 L (22-29) mmol/L Anion Gap 15 (12-20) BUN 8 L (9-16) mg/dL Creatinine 0.80 (0.5-1.4) mg/dL Estim Creat Clear Calc 158.9 Estimated GFR > 60 Random Glucose 94 (60-115) mg/dL Calcium 9.0 (8.4-10.2) mg/dL Magnesium 2.0 (1.6-2.6) mg/dL Total Bilirubin 0.9 (0.0-1.0) mg/dL AST 18 (5-31) U/L ALT 23 (0-31) U/L Alkaline Phosphatase 102 (39-117) U/L Total Protein 7.0 (6.5-8.0) g/dL Albumin 4.0 (3.5-5.0) g/dL Lipase 24 (8-78) U/L COVID-19 (FROILAN) Negative (Negative) COVID-19 Clin Com See Note Influenza Type A (NATA) Negative (Negative) Influenza Type B (NATA) Negative (Negative) Influenza A & B Note See Note Discharge Plan Discharge Clinical Impression: Eloped from emergency department Patient Disposition: Elopement Prescriptions: No Action doxycycline monohydrate 100 mg tablet 100 mg PO BID Qty: 14 0RF amoxicillin-pot clavulanate 875-125 mg tablet 1 tab PO BID Qty: 20 0RF Interventions: ED Discharge Assessment Last Done: 02/06/23 19:14 Discharge Date/Time: 02/06/23 19:15 Print Language: Albanian
[2023-02-06 16:35] LABS: MANUAL DIFF FLAG NO
[2023-02-06 16:36] LABS: Basophils Percent Auto 0.2 % (0-2); Hemoglobin 13.5 g/dl (12.0-16.0); Imm Gran Abs Auto 0.02 X10*3/uL (0.00-0.03); Imm Gran Pct Auto 0.2 % (0.0-0.4); Mean Corpuscular HGB Conc 32.1 g/dl (31.0-35.0); Mean Platelet Volume 11.5 fL (9.4-12.3); PLT CLUMP 1; Red Cell Distribution Width 13.4 % (11.0-16.0); SCAN SMEAR FLAG 1
[2023-02-06 16:38] LABS: Eosinophils Absolute Auto 0.1 X10*3/uL (0.0-0.4); Eosinophils Percent Auto 1.5 % (0-4); Lymphocytes Absolute Auto 1.2 X10*3/uL (1.2-4.9); Lymphocytes Percent Auto 14.7 % (20-40); Mean Corpuscular Hemoglobin 27.8 pg (27.0-33.0); Mean Corpuscular Volume 86.6 fL (80.0-98.0); Monocytes Absolute Auto 0.5 X10*3/uL (0.1-1.2); Neutrophils Absolute Auto 6.3 x10*3/uL (2.0-8.3); Neutrophils Percent Auto 77.4 % (45-73); Red Blood Count 4.85 X10*6/uL (4.20-5.50)
[2023-02-06 16:52] LABS: COVID-19 Test Negative (Negative); IDNOW Serial# 9DB6401D; IDNOW Serial# BCCEAD1C; Influenza A Negative (Negative); Influenza B2 Negative (Negative)
[2023-02-06 16:55] LABS: White Blood Count 8.2 X10*3/uL (4.8-10.8)
[2023-02-06 17:00] LABS: Alanine Aminotransferase 23 U/L (0-31); Alkaline Phosphatase 102 U/L (39-117); Anion Gap 15 (12-20); Aspartate Amino Transferase 18 U/L (5-31); Bilirubin Total 0.9 mg/dL (0.0-1.0); Blood Urea Nitrogen 8 mg/dL (9-16); Carbon Dioxide 21 mmol/L (22-29); Chloride 107 mmol/L (96-108); Creatinine Clr Calc Pharmacy 158.9; Estimated Glomerular Filt Rate > 60; Glucose Random 94 mg/dL (60-115); Lipase 24 U/L (8-78); Potassium 4.4 mmol/L (3.3-5.1); Sodium 139 mmol/L (135-145)
== END 2023-02-06 19:15 | disposition left against medical advice (07) ==
PROVIDERS: Physician Assistant; Emergency Provider Emergency Medicine; PCP Internal Medicine
DX: R51.9 Headache, unspecified (principal); R10.13 Epigastric pain; R11.0 Nausea; Z20.822 Contact with and (suspected) exposure to COVID-19
CPT/HCPCS: 80053; 83690; 83735; 85025; 87502; 87635; 99282; 99283